=== PATIENT | female | born 1990 | race Caucasian/White ===

== ENCOUNTER → 2024-04-28 | Outpatient (CLI) | payer OTHER | END | disposition home or self-care (01) | LOC: LAB SHORT 17:23 → LAB 17:23 | DX: O23.40 Unspecified infection of urinary tract in pregnancy, unspecified trimester (principal) | CPT/HCPCS: 87086 ==

== ENCOUNTER → 2024-05-02 | Outpatient (CLI) | payer OTHER ==
[2024-05-11 07:54] LABS: HPV HIGH RISK BY TMA Not Detected; HPV SOURCE Vaginal
== END ==
LOC: LAB 15:35 → LAB SHORT 15:35
PROVIDERS: Obstetrics & Gynecology
DX: Z01.419 Encounter for gynecological examination (general) (routine) without abnormal findings (principal)
CPT/HCPCS: 87624; G0123

== ENCOUNTER → 2024-10-17 | Outpatient (CLI) | payer OTHER ==
[~2024-10-17] MED LIST: ACET500 PO; ASPIR 8181 M1 PO; IBU800 M1 PO; LEVOTHYROXINE100 M10 PO; METF500 PO
== END ==
LOC: LAB 16:56 → LAB SHORT 16:56
DX: O09.93 Supervision of high risk pregnancy, unspecified, third trimester (principal); Z3A.00 Weeks of gestation of pregnancy not specified
CPT/HCPCS: 87081; 87150

== ENCOUNTER → 2024-10-20 | Outpatient (CLI) | payer OTHER ==
[2024-10-20 13:25] LABS: BASOPHILS ABSOLUTE AUTO 0.03 K/mm3 (0.00-0.23); BASOPHILS PERCENT AUTO 0 % (0-2); EOSINOPHILS ABSOLUTE AUTO 0.07 K/mm3 (0.00-0.68); EOSINOPHILS PERCENT AUTO 1 % (0-6); Hematocrit 31.2 % (33.0-51.0); Hemoglobin 10.1 g/dL (11.5-16.0); IMMATURE GRAN ABSOLUTE AUTO 0.04 K/mm3 (0.00-0.10); IMMATURE GRAN PERCENT AUTO 1 % (0-1); LYMPHOCYTES ABSOLUTE AUTO 1.64 K/mm3 (0.84-5.20); LYMPHOCYTES PERCENT AUTO 24 % (21-46); MONOCYTES ABSOLUTE AUTO 0.37 K/mm3 (0.16-1.47); MONOCYTES PERCENT AUTO 5 % (4-13); Mean Corpuscular HGB 25.7 pg (26.0-34.0); Mean Corpuscular HGB Conc 32.4 g/dL (31.5-36.5); Mean Corpuscular Volume 79 fL (80-100); NEUTROPHILS ABSOLUTE AUTO 4.75 K/mm3 (1.96-9.15); NEUTROPHILS PERCENT AUTO 69 % (41-73); Platelet Count 185 K/mm3 (150-400); RDW Coefficient Variation 15.7 % (11.7-14.2); RDW Standard Deviation 45.1 fL (35.1-46.3); Red Blood Cell Count 3.93 M/mm3 (3.80-5.20)
[2024-10-20 13:54] LABS: Albumin, Blood 2.1 g/dL (3.4-5.0); Albumin/Globulin Ratio 0.5 (0.8-1.8); Bilirubin, Total 0.2 mg/dL (0.1-1.0); Bun/Creatinine Ratio 18.5 (12.0-20.0); Creatinine, Blood 0.65 mg/dL (0.40-1.00); Globulin, Blood 4.4 g/dL (2.2-4.0); Potassium, Blood 4.1 mmol/L (3.5-5.5); Total Protein, Blood 6.5 g/dL (6.4-8.2)
== END ==
LOC: LAB 13:15 → LAB SHORT 13:15
PROVIDERS: Obstetrics & Gynecology
DX: I10 Essential (primary) hypertension (principal)
CPT/HCPCS: 80053; 85025

== ENCOUNTER → 2024-10-20 | Outpatient (CLI) | payer OTHER ==
[2024-10-20 16:16] LABS: Creatinine, Urine Random 82.5 mg/dL (27.00-270.00); Protein, Urine Random 33.1 mg/dL (0.0-11.9); Protein/Creat Ratio, Ur Random 0.4
== END | disposition home or self-care (01) ==
LOC: LAB 11:45 → LAB SHORT 11:45
PROVIDERS: Obstetrics & Gynecology
DX: I10 Essential (primary) hypertension (principal)
CPT/HCPCS: 82570; 84156

== ENCOUNTER 2024-10-21 04:29 | Inpatient (IN) | payer OTHER ==
[~2024-10-21] VITALS: Ht 162.6 cm; Wt 157.7 kg
[2024-10-21] VITALS (34 sets, daily range): BP systolic 117–195; BP diastolic 63–124
[2024-10-21] MEDS ORDERED: CeFAZolin Sodium 3,000 MG in NS 100 ML IV SCH ×2 (04:50→15:00)
[2024-10-21] MEDS ORDERED: Lactated Ringer's 1,000 ML IV PRN (04:55)
[2024-10-21] MEDS ORDERED: NIFEdipine 10 MG Cap ONE (04:58)
[2024-10-21] MEDS ORDERED: Calcium Gluconate 0.465 mEq/ml 10 ml Vial IV PRN ×2 (05:05→08:50)
[2024-10-21] MEDS ORDERED: Labetalol HCL 5 MG/ML 4ML Injection (Single Dose) IV PRN ×7 (05:05→08:45)
[2024-10-21] MEDS ORDERED: NIFEdipine 10 MG Cap PO ONE (05:05)
[2024-10-21] MEDS ORDERED: Lactated Ringer's 1,000 ML IV SCH ×2 (05:05→08:35)
[2024-10-21] MEDS ORDERED: METF500 PO (05:08)
[2024-10-21] MEDS ORDERED: ASPIR 8181 M1 PO (05:09)
[2024-10-21] MEDS ORDERED: LEVOTHYROXINE100 M10 PO (05:09)
[2024-10-21] MEDS ORDERED: Carboprost Tromethamine 250 MCG/ML 1ML Amp IM PRN ×2 (05:15→08:30)
[2024-10-21] MEDS ORDERED: Misoprostol 200 MCG Tab PR PRN ×2 (05:15→08:35)
[2024-10-21] MEDS ORDERED: Oxytocin 10 Unit / ML Vial IM PRN (05:15)
[2024-10-21] MEDS ORDERED: Tranexamic Acid 100 ML IV SCH ×2 (05:15→09:00)
[2024-10-21] MEDS ORDERED: Ondansetron HCl 2 MG / ML 2ML Vial IV PRN ×2 (05:15→08:35)
[2024-10-21] MEDS ORDERED: Misoprostol 200 MCG Tab BC PRN (05:15)
[2024-10-21] MEDS ORDERED: Penicillin G Potassium 5,000,000 UNITS in NS 250 ML IV ONE (05:15)
[2024-10-21] MEDS ORDERED: Acetaminophen 500 MG Tab PO PRN (05:15)
[2024-10-21] MEDS ORDERED: Methylergonovine Maleate 0.2MG / ML 1ML Amp IM PRN (05:15)
[2024-10-21] MEDS ORDERED: OXYTOCIN/RINGER'S LACTATE 500 ML IV PRN (05:15)
[2024-10-21] MEDS ORDERED: Calcium Carbonate 500 MG Tab Chew PO PRN (05:20)
[2024-10-21] MEDS ORDERED: Insulin Human Regular 100 UNIT in NS 100 ML IV SCH (05:35)
[2024-10-21] MEDS ORDERED: Labetalol HCL 5 MG/ML 4ML Injection (Single Dose) ONE (05:37)
[2024-10-21 06:00] LABS: Albumin, Blood 2.2 g/dL (3.4-5.0); Albumin/Globulin Ratio 0.5 (0.8-1.8); Bilirubin, Total 0.2 mg/dL (0.1-1.0); Bun/Creatinine Ratio 20.7 (12.0-20.0); Calcium, Blood 9.3 mg/dL (8.5-10.1); Creatinine, Blood 0.63 mg/dL (0.40-1.00); Globulin, Blood 4.4 g/dL (2.2-4.0); Potassium, Blood 3.9 mmol/L (3.5-5.5); Total Protein, Blood 6.6 g/dL (6.4-8.2)
[2024-10-21] MEDS ORDERED: Levothyroxine Sodium 0.1 MG Tab PO SCH (06:05)
[2024-10-21 06:13] LABS: BASOPHILS ABSOLUTE AUTO 0.02 K/mm3 (0.00-0.23); BASOPHILS PERCENT AUTO 0 % (0-2); EOSINOPHILS ABSOLUTE AUTO 0.04 K/mm3 (0.00-0.68); EOSINOPHILS PERCENT AUTO 1 % (0-6); Hematocrit 30.4 % (33.0-51.0); IMMATURE GRAN ABSOLUTE AUTO 0.05 K/mm3 (0.00-0.10); IMMATURE GRAN PERCENT AUTO 1 % (0-1); LYMPHOCYTES PERCENT AUTO 23 % (21-46); MONOCYTES PERCENT AUTO 5 % (4-13); Mean Corpuscular HGB 25.8 pg (26.0-34.0); Mean Corpuscular HGB Conc 32.9 g/dL (31.5-36.5); Mean Corpuscular Volume 79 fL (80-100); NEUTROPHILS PERCENT AUTO 70 % (41-73); Platelet Count 181 K/mm3 (150-400); RDW Coefficient Variation 15.8 % (11.7-14.2); RDW Standard Deviation 44.5 fL (35.1-46.3); Red Blood Cell Count 3.87 M/mm3 (3.80-5.20); White Blood Cell Count 7.71 K/mm3 (4.00-11.30)
[2024-10-21 06:18] LABS: Mean Platelet Volume 13.3 fL (9.1-12.4)
[2024-10-21] MEDS ORDERED: Magnesium Sulf 2 GM/Water 50ML 50 ML IV SCH (06:35)
[2024-10-21] MEDS ORDERED: Magnesium Sul 4 GM/Water100 ML 100 ML IV ONE ×2 (06:35→06:38)
[2024-10-21] MEDS ORDERED: Magnesium Sulfate 500 ML IV SCH ×2 (06:35→08:55)
[2024-10-21] MEDS ORDERED: Magnesium Sulf 2 GM/Water 50ML 50 ML IV ONE (06:38)
[2024-10-21] MEDS ORDERED: Terbutaline Sulfate 1MG / ML 1 ML Amp ONE (06:45)
[2024-10-21] MEDS ORDERED: Nitroglycerin 0.4 MG SUBL SL PRN (06:50)
[2024-10-21 06:51] LABS: International Normalized Ratio 0.89; Prothrombin Time Results 9.6 Sec (9.7-11.5)
[2024-10-21 07:30] LABS: PCO2 Cord - Arterial 85.8 mmHg (40-50); PO2 Cord - Arterial < 14.0 mmHg (16-20); pH Cord - Arterial 7.13 (7.28-7.35)
[2024-10-21 07:32] LABS: PCO2 Cord - Venous 55.4 mmHg (40-50); PO2 Cord - Venous 37.8 mmHg (28-32); pH Umbilical Cord - Venous 7.25 (7.26-7.35)
[2024-10-21] MEDS ORDERED: HYDROmorphone HCl/Pf 1MG SYR ONE (07:52)
[2024-10-21] MEDS ORDERED: HYDROmorphone HCl/Pf 1MG SYR IV ONE (08:00)
[2024-10-21] MEDS ORDERED: OXYTOCIN/RINGER'S LACTATE 500 ML IV SCH (08:30)
[2024-10-21] MEDS ORDERED: DiphenhydrAMINE HCL 25 MG Cap PO PRN (08:30)
[2024-10-21] MEDS ORDERED: Promethazine HCl 25 MG Tab PO PRN (08:35)
[2024-10-21] MEDS ORDERED: Simethicone 80 MG Chew PO PRN (08:35)
[2024-10-21] MEDS ORDERED: Lanolin Cream TOP PRN (08:35)
[2024-10-21] MEDS ORDERED: Rho(D) Immune Globulin 300 MCG / SYR IM ONE (08:35)
[2024-10-21] MEDS ORDERED: Magnesium Hydroxide Conc 10 ML UDC PO PRN (08:35)
[2024-10-21] MEDS ORDERED: HydrALAZINE HCl 20 MG / ML 1ML Vial IV PRN ×3 (08:40→08:50)
[2024-10-21] MEDS ORDERED: Labetalol HCL 5 MG/ML 4ML Injection (Single Dose) IV ONE ×3 (08:40→08:45)
[2024-10-21] MEDS ORDERED: OxyCODONE HCL 5 MG TAB PO PRN ×2 (08:40)
[2024-10-21] MEDS ORDERED: Labetalol HCL 5 MG/ML 20MLVIAL IV PRN ×2 (08:45)
[2024-10-21] MEDS ORDERED: Diazepam 5 MG / ML 2ML SYR IV PRN (08:50)
[2024-10-21] MEDS ORDERED: HYDROmorphone 1 MG/ML 30 ML Bag IV PRN (08:55)
[2024-10-21] MEDS ORDERED: MetFORMIN HCl 500 mg PO SCH (09:00)
[2024-10-21] MEDS ORDERED: Azithromycin 500 MG in NS 250 ML IV ONE (09:00)
[2024-10-21] MEDS ORDERED: Ketorolac Tromethamine 30mg Vial IV SCH (09:00)
[2024-10-21] MEDS ORDERED: Polyethylene Glycol 3350 17 gm PO SCH (09:00)
[2024-10-21] MEDS ORDERED: Penicillin G Potassium 2,500,000 UNITS in Dextrose 5% 100 ML IV SCH (10:00)
[2024-10-21] MEDS ORDERED: NS 100 ML IV ONE (11:26)
[2024-10-21] MEDS ORDERED: Insulin Regular 100 UNIT/ML 10ML Vial SC SCH (11:30)
[2024-10-21] MEDS ORDERED: NS 100 ML IV PRN (11:45)
[2024-10-21] MEDS ORDERED: Acetaminophen 500 MG Tab PO SCH (12:00)
[2024-10-21] MEDS ORDERED: NS 500 ML IV PRN (12:50)
[2024-10-21] MEDS ORDERED: Ketorolac Tromethamine 30mg Vial IV PRN (14:00)
[2024-10-21] MEDS ORDERED: Ibuprofen 400 MG Tab PO SCH (16:00)
[2024-10-21] MEDS ORDERED: NIFEdipine 30 MG TabCR PO SCH (17:40)
[2024-10-22] VITALS (8 sets, daily range): BP systolic 126–141; BP diastolic 67–92
[2024-10-22] MEDS ORDERED: NS 250 ML IV PRN (01:25)
--- NOTE | 2024-10-22 08:45 | NUR ---
DR. WELCH AT BEDSIDE TO SEE PT. MAG SHUT OFF AT THIS TIME PER ORDERS.
[2024-10-22] MEDS ORDERED: Enoxaparin 40 MG/0.4 ML SYR SC SCH (09:00)
[2024-10-22] MEDS ORDERED: NIFEdipine 30 MG TabCR PO SCH (09:00)
[2024-10-22 09:03] LABS: BASOPHILS ABSOLUTE AUTO 0.02 K/mm3 (0.00-0.23); BASOPHILS PERCENT AUTO 0 % (0-2); EOSINOPHILS ABSOLUTE AUTO 0.02 K/mm3 (0.00-0.68); EOSINOPHILS PERCENT AUTO 0 % (0-6); Hematocrit 25.2 % (33.0-51.0); Hemoglobin 8.1 g/dL (11.5-16.0); IMMATURE GRAN ABSOLUTE AUTO 0.05 K/mm3 (0.00-0.10); IMMATURE GRAN PERCENT AUTO 1 % (0-1); LYMPHOCYTES PERCENT AUTO 20 % (21-46); MONOCYTES ABSOLUTE AUTO 0.39 K/mm3 (0.16-1.47); MONOCYTES PERCENT AUTO 5 % (4-13); Mean Corpuscular HGB Conc 32.1 g/dL (31.5-36.5); Mean Corpuscular Volume 81 fL (80-100); Mean Platelet Volume 12.5 fL (9.1-12.4); NEUTROPHILS PERCENT AUTO 74 % (41-73); Platelet Count 212 K/mm3 (150-400); RDW Standard Deviation 46.1 fL (35.1-46.3); Red Blood Cell Count 3.12 M/mm3 (3.80-5.20); White Blood Cell Count 7.88 K/mm3 (4.00-11.30)
[2024-10-22 09:20] LABS: Albumin/Globulin Ratio 0.5 (0.8-1.8); Bilirubin, Total 0.2 mg/dL (0.1-1.0); Bun/Creatinine Ratio 10.9 (12.0-20.0); Calcium, Blood 7.4 mg/dL (8.5-10.1); Creatinine, Blood 0.64 mg/dL (0.40-1.00); Globulin, Blood 3.9 g/dL (2.2-4.0); Potassium, Blood 3.7 mmol/L (3.5-5.5); Total Protein, Blood 5.9 g/dL (6.4-8.2)
[2024-10-22] MEDS ORDERED: MetFORMIN HCl 500 mg PO SCH (17:00)
[2024-10-23 01:01] VITALS: BP 140/67
[2024-10-23 04:55] VITALS: BP 134/63
[2024-10-23 07:37] VITALS: BP 122/64
--- NOTE | 2024-10-23 10:13 | NUR ---
Assumed care from Alice Paulino RN.
[2024-10-23] MEDS ORDERED: IBU800 M1 PO (12:06)
[2024-10-23] MEDS ORDERED: ACET500 PO (12:06)
[2024-10-23 13:22] VITALS: BP 158/78
--- NOTE | 2024-10-23 13:30 | NUR ---
No acute changes since assuming care. Pt verbalized understanding of medication, instructions and follow up. Denies additional needs, concerns, questions. ID bands matched w/nb and verifcation form. Pt d/c'd home ambulatory to care of family.
[2024-10-23 13:35] VITALS: BP 145/78
--- NOTE | 2024-10-25 09:18 | NUR ---
10/25/24 0918 Nolan Dorantes NO COUNTS PERFORMED
--- NOTE | 2024-10-26 07:54 | NUR ---
LATE CIVIL DESIGNER. 10/21/24 0782 RN RM NOTIFIED DR SALGADO OF [facility], PLANNED FOR TODAY FOR BREECH PRESENTATION. PT BREATHING THROUGH CONTRACTIONS APPROXIMATELY EVERY 3 MINUTES AND IS GBS POSITIVE. RN ASKED DR SALGADO IF SHE WANTED A BASELINE VE, WHICH SHE DECLINED.
== END 2024-10-23 13:45 | disposition home or self-care (01) | DRG 786 ==
LOC: OBS 04:29 → BC 04:31 → OBS 04:47 → BC 05:00
PROVIDERS: Family Medicine; Obstetrics & Gynecology; ADMIT Obstetrics & Gynecology
PROC: 10D00Z1 Extraction of Products of Conception, Low, Open Approach (ICD-10-PCS; principal; 2024-10-21 07:15)
DX: O42.02 Full-term premature rupture of membranes, onset of labor within 24 hours of rupture (principal); O24.12 Pre-existing type 2 diabetes mellitus, in childbirth; Z3A.38 38 weeks gestation of pregnancy; Z37.0 Single live birth; O14.14 Severe pre-eclampsia complicating childbirth; O40.3XX0 Polyhydramnios, third trimester, not applicable or unspecified; O36.63X0 Maternal care for excessive fetal growth, third trimester, not applicable or unspecified; O99.214 Obesity complicating childbirth; E66.01 Morbid (severe) obesity due to excess calories; O99.824 Streptococcus B carrier state complicating childbirth; O32.1XX0 Maternal care for breech presentation, not applicable or unspecified; E03.9 Hypothyroidism, unspecified; Z79.82 Long term (current) use of aspirin; Z79.84 Long term (current) use of oral hypoglycemic drugs; Z79.890 Hormone replacement therapy
CPT/HCPCS: 36415; 36416; 59025; 74018; 80053; 82570; 82803; 82947; 83036; 83615; 84156; 85025; 85384; 85610; 85730; 86850; 86900; 86901; 86923; 99214; A9270; J0690; J1171; J1650; J1815; J1885; J2540; J3105; J3475; J7050; J7120